=== PATIENT | male | born 2000 | race Caucasian/White ===

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

== ENCOUNTER → 2021-01-13 14:32 | Outpatient (CLI) | payer BC, SELFPAY ==
--- NOTE | 2021-01-13 14:36 | XR_ITS ---
PROCEDURE: XR FOOT LT MIN 3V CLINICAL INDICATION: Left foot pain COMPARISON: No exams were available for comparison FINDINGS: No fracture or dislocation. No lytic or blastic change. There is normal mineralization. The joint spaces are well-preserved. No significant degenerative/arthritic changes. No erosive changes evident. Other findings:None. IMPRESSION: No acute findings. Dictated by: Jerome Duke MD 01/13/2021 14:47 Jerome Duke MD in [place] 01/13/2021 14:47
== END ==
PROVIDERS: PCP Physician Assistant; Visit Provider Physician Assistant
DX: M79.672 Pain in left foot (principal)
CPT/HCPCS: 73630

== ENCOUNTER 2023-02-21 07:23 | Outpatient (CLI) | payer BC, SELFPAY ==
[2023-02-21 22:42] LABS: Amphetamine/Metha Screen,Urine Positive ng/ml (<1000); Barbiturates Screen,Urine Negative ng/ml (<200); Benzodiazepines Screen,Urine Negative ng/ml (<200); Cannabinoid Screen,Urine Negative ng/ml (<50); Cocaine Screen,Urine Negative ng/ml (<300); Methadone Screen,Urine Negative ng/ml (<300); Opiate Screen,Urine Negative ng/ml (<300); Phencyclidine Screen,Urine Negative ng/ml (<25)
== END 2023-02-21 23:59 ==
LOC: LAB.DROPOF 02-22 07:23
PROVIDERS: PCP Physician Assistant; Visit Provider Physician Assistant
DX: F90.9 Attention-deficit hyperactivity disorder, unspecified type (principal)
CPT/HCPCS: 80307

== ENCOUNTER 2023-07-03 11:06 | Outpatient (CLI) | payer BC, SELFPAY | END 2023-07-03 23:59 | disposition home or self-care (01) | LOC: LAB.DROPOF 07-05 11:06 | PROVIDERS: PCP Student in an Organized Health Care Education/Training Program; Visit Provider Student in an Organized Health Care Education/Training Program | DX: J02.9 Acute pharyngitis, unspecified (principal) | CPT/HCPCS: 87070 ==

== ENCOUNTER 2023-07-06 11:34 | Outpatient (CLI) | payer BC, SELFPAY ==
--- NOTE | 2023-07-06 11:35 | MR_ITS ---
FINAL REPORT CLINICAL HISTORY: concussion ,headache blunt force trauma to head FINDINGS: Multiplanar MR imaging of the brain was performed without and with contrast. There is no evidence of intracranial hemorrhage or mass. No abnormal extra-axial fluid collection is seen. The ventricular size is within normal limits. There is no evidence of shift of the midline structures. There is a 10 mm focus of heterogeneous signal in the right posterior frontal cortex with contrast enhancement. The appearance is most consistent with a cavernous angioma with prior hemorrhage. There is lobular mucosal thickening of the left maxillary sinus. No area of abnormal restricted diffusion is identified. Normal major vessel vascular flow voids are noted. IMPRESSION: Heterogeneous signal in the right posterior frontal cortex consistent with cavernous angioma with prior hemorrhage. Reviewed, Interpreted and Dictated by Octaviano Craven III, MD Transcribed by Kendra Swan Authenticated and [facility]
[2023-07-06] MEDS: GADOTERIDOL INJ 17ML SYRINGE 24 ML IV (12:28)
== END 2023-07-06 23:59 | disposition home or self-care (01) ==
LOC: RAD 11:35
PROVIDERS: PCP Physician Assistant; Visit Provider Specialist
DX: F07.81 Postconcussional syndrome (principal); R42 Dizziness and giddiness; R41.89 Other symptoms and signs involving cognitive functions and awareness; R51.9 Headache, unspecified
CPT/HCPCS: 70553; A9576

== ENCOUNTER → 2023-09-21 07:08 | Outpatient (CLI) | payer BC, SELFPAY | LOC: SL 07:08 | PROVIDERS: PCP Physician Assistant; Visit Provider Specialist | DX: F07.81 Postconcussional syndrome (principal); R51.9 Headache, unspecified; G47.33 Obstructive sleep apnea (adult) (pediatric) | CPT/HCPCS: G0399 ==

== ENCOUNTER 2024-10-14 09:26 | Outpatient (CLI) | payer BC, SELFPAY ==
[2024-10-14 16:06] LABS: Coronavirus 19, PCR Not Detected (NotDetected); Influenza A, PCR Not Detected (NotDetected); Influenza B, PCR Not Detected (NotDetected)
--- OUTSIDE RECORDS SUMMARY | 2024-10-16 12:08 | XMS_ITS | Clinical Summary ---
Author Organization [facility] Address [address] [place] [address] Care Team Providers Care Seasonal Customer Service Associate Name Role Phone Aayush Raman MD Primary Care Provider [phone] Allergies No known active allergies Medications No known medications Active Problems No known active problems Family History Medical History Relation Name Comments Diabetes Father Hypertension Father Cancer Other Grandparent Heart attack Other Grandparent Heart disease Other Grandparent Osteoarthritis Other Grandparent Relation Name Status Comments Father Other Grandparent Social History Tobacco Use Types Packs/Day Years Used Date Smoking Tobacco: Never Smokeless Tobacco: Never Alcohol Use Standard Drinks/Week Comments No 0 (1 standard drink = 0.6 oz pur e alcohol) Abuse Screen Answer Date Recorded Unsafe at Home or Work/School Not on file Feels Threatened by Someone? Not on file 12/2022 Does Anyone Keep You from Co ntacting Others or Doint Things Outside the Home? Not on file 11/30/2022 Physical Sign of Abuse Present Not on file 1 Housing Stability Answer Date Recorded Current Living Arrangements Not on file 11/20 Potentially Unsafe Housing Conditions Not on fe e 11/30/2022 Family and Community Support Answer Ruben e Recorded Help with Day-to-Day Activities Not on file 11/30/2022 Lonely or Isolated Not on file 11/30/2022 Employment Answer Date Recorded Do you want help finding or keeping work or a bruce b? Not on file 11/30/2022 Disabilities Answer Date Recorded Concentrating, Remembering, or Making Decisions Difficulty Not on file 11/30/2022 Doing Errands Independently Difficulty Not on fi le 11/30/2022 Education Answer Date Recorded Help with school or training? Not on file Preferred Language Not on file 11/30/2022 Sex and Gender Information Value Date Recorded Sex Assigned at Not on file Legal Sex Male 9:50 AM EDT Gender Identity Not on file Sexual Orientation Not on file Last Filed Vital Signs Vital Sign Reading Time Taken Comments Blood Pressure 157/83 12/27/2016 2:58 PM EST Pulse 101 12/27/2016 2:58 PM EST Temperature - - Respiratory Rate - - Oxygen Saturation - - Inhaled Oxygen Concentration - - Weight 105 kg (231 lb) 12/27/2016 2:58 PM EST Height 167.6 cm (5' 6 ) 12/27/2016 2:58 PM EST Body Mass Index 37.28 12/27/2016 2:58 PM EST Plan of Treatment Health Maintenance Due Date Last Done Comments ANNUAL PHYSICAL 12/12/2016 HEPATITIS C SCREENING 12/12/2016 MENINGOCOCCAL B VACCINE (1 o f 2 - Standard) 2017 TDAP/TD VACCINES (1 - Tdap) 2020 COVID-19 Vaccine (1 - 2023-2 5 season) 2023 INFLUENZA VACCINE 11/20/2024 MENINGOCOCCAL VACCINE Aged Out No jose alfredo jarred eligible based on patient's age to complete this topic Pneumococcal Vaccine 0-49 Aged Out No longer eligible based on patient's age to complete this topic Insurance EMPLOYEE Care Teams Seasonal Customer Service Associate Relationship Specialty Start Date End Date Aayush Raman MD [address] [facility] [place] [id number] PCP - General Family Medicine 12/27/16
== END 2024-10-14 23:59 | disposition home or self-care (01) ==
LOC: LAB.DROPOF 10-16 12:06
PROVIDERS: PCP Nurse Practitioner; Visit Provider Nurse Practitioner
DX: J02.9 Acute pharyngitis, unspecified (principal)
CPT/HCPCS: 87631